=== PATIENT | female | born 1955 | race Hispanic/Latino ===

== ENCOUNTER 2023-10-17 19:07 | Emergency (ER) | payer MEDICARE ==
[~2023-10-17] VITALS: Ht 152.4 cm; Wt 56.7 kg
[2023-10-17 19:13] VITALS: PULSE 75; RESP 20; TEMP 98.2
[2023-10-17] MEDS ORDERED: TRAMADOL HCL 50 MG TAB ONE (19:26)
[2023-10-17] MEDS: TRAMADOL HCL 50 MG TAB PO STA (19:35)
[2023-10-17] MEDS ORDERED: ACETAMINOPHEN-1 EAC4 PO (21:55)
[2023-10-17] MEDS ORDERED: ONDANSETRON ODT4 MG PO (21:55)
[2023-10-17 22:26] VITALS: BP 161/58; PULSE 79; RESP 18; TEMP 98.5; O2SAT 100
== END 2023-10-17 22:04 | disposition home or self-care (01) ==
LOC: ER 19:15
DX: M25.561 Pain in right knee (principal); S72.491A Other fracture of lower end of right femur, initial encounter for closed fracture; W01.0XXA Fall on same level from slipping, tripping and stumbling without subsequent striking against object, initial encounter; Y93.01 Activity, walking, marching and hiking; Y92.89 Other specified places as the place of occurrence of the external cause; I12.9 Hypertensive chronic kidney disease with stage 1 through stage 4 chronic kidney disease, or unspecified chronic kidney disease; E11.22 Type 2 diabetes mellitus with diabetic chronic kidney disease; N18.9 Chronic kidney disease, unspecified; Z87.442 Personal history of urinary calculi
CPT/HCPCS: 99284